=== PATIENT | male | born 1955 | race Caucasian/White ===

== ENCOUNTER 2017-03-23 03:44 | Outpatient (CLI) | payer MEDICARE ==
[~2017-03-23] VITALS: Ht 193 cm; Wt 145.1 kg
--- NOTE | ~2017-03-23 | HEMODYNAMI ---
PATIENT:TANNER ELMORE MEDICAL RECORD: [id number] : 51 [facility] ADMISSION DATE: 03/23/17 Generatedon:03/24/20179:04 Patient name: TANNER ELMORE Patient #: [id number] SSN: : Date of study: 03/24/2017 Page: Of Hemodynamic Procedure Report Patient Data Patient Demographics Procedure consent was obtained First Name: TANNER Gender: Male Last Name: RAMÍREZ : 1955 Patient #: [id number] Age: 61 year(s) Race: Unknown Additional ID: [id number] Contact details [address]: [address] [place] [address] State: [place] City: [place] Zip code: [address] Past Medical History Allergies Allergen Reaction Date Comments Reported Other allergy 03/24/2017 N Admission Admission Data Admission Date: 03/23/2017 Admission Time: 5:15 Admit Source: Other Room #: D[facility] Lab Results Lab Result Date: 03/23/2017 Lab Result Time: 23:05 Biochemistry Name Units Result Min Max BUN mg/dl 12 --(-*--)-- 7 18 Creatinine mg/dl 0.9 --(-*--)-- 0.6 1.3 CBC Name Units Result Min Max Hematocrit % 45.2 --(-*--)-- 42 54 Hemoglobin g/dl 15.1 --(-*--)-- 13.5 17.5 Procedure Procedure Types Cath Procedure Diagnostic Procedure C [facility] w/Coronaries PCI Procedure Coronary Stent Initial Miscellaneous Procedures Moderate Sedation up to 45 minutes Procedure Description Procedure Date Procedure Date: 03/24/2017 Procedure Start Time: 8:18 Procedure End Time: 9:02 Procedure Staff Name Function Jacinto Ward MD Performing Physician Juanpablo Fisher RT Scrub Misael Varela RN Nurse Aleksandar Cuevas RT Monitor Procedure Data Cath Procedure Fluoroscopy Diagnostic fluoroscopy Total fluoroscopy Time: time: 15.4 min 15.4 min Diagnostic fluoroscopy Total fluoroscopy dose: dose: 1951 mGy 195 mGy Contrast Material Contrast Material Type Amount (ml) Isovue 300 152 Entry Location Entry Primary Successful Side Size Upsize Upsize Entry Closure Ashby ccessful Closure Location (Fr) 1 (Fr) 2 (Fr) Remarks Device Remarks Radial Right 6 Fr Mechanical artery Short Compression Femoral Right 6 Fr Exoseal artery Short Estimated blood loss: 10 ml Diagnostic catheters Device Type Used For End Catheter Placement Diagnostic Terumo 5Fr Procedure Freedom 110cm catheter Diagnostic Infinity 5Fr Procedure AR MOD Catheter Procedure Complications No complications Procedure Medications Medication Administration Route Dosage Oxygen NC 2 l/min 0.9% NaCl I.V. 100 ml/hr Heparin Flush Bag added to field 2 bags (1000units/500ml NS) Radial Cocktail added to field 1 syringe (Verapomil 2mg/Nitro 400mcg/Heparin 1500units) Fentanyl I.V. 50 mcg Versed I.V. 1 mg Fentanyl I.V. 50 mcg Versed I.V. 1 mg Versed I.V. 1 mg Radial Cocktail I.A. 1 syringe (Verapomil 2mg/Nitro 400mcg/Heparin 1500units) Versed I.V. 1 mg Angiomax (bolus) I.V. 22 ml Angiomax Drip I.V. drip 50.6 ml/hr (250mg/50ml NS) (Renal) Angiomax Drip I.V. drip 50.6 ml/hr (250mg/50ml NS) (Renal) Hemodynamics Rest HGB: 15.1 (g/dl) Heart Rate: 75 (bpm) Pressure Samples Time Site Value (mmHg) Purpose Heart Use Rate(bpm) 8:21 LV 125/2,18 EDP 73 Gradients Valve Time Site Site Mean SEP/DFP Peak To Heart Use 1 2 (mmHg) (sec/min) Peak Rate (mmHg) (bpm) Aortic 8:21 LV AO 69 Snapshots Pre Cath Intra NCS Post Cath Vital Signs Time Heart Resp SPO2 etCO2 NIBP (mmHg) Rhythm Pain Sedation Rate (ipm) (%) (mmHg) Status Level (bpm) 7:59:51 72 17 96 0 136/80(106) NSR 0 (11) 10(A) , No pain 8:04:46 75 16 97 0 143/82(111) NSR 0 (11) 10(A) , No pain 8:09:41 75 17 96 20.4 135/82(105) NSR 0 (11) 10(A) , No pain 8:14:30 66 17 97 31.7 130/82(109) NSR 0 (11) 10(A) , No pain 8:19:18 70 18 94 35.5 122/77(95) NSR 0 (11) 9(A) , No pain 8:24:09 69 18 90 31.7 129/75(93) NSR 0 (11) 9(A) , No pain 8:29:00 70 19 94 34.7 123/76(94) NSR 0 (11) 9(A) , No pain 8:33:49 72 34 95 33.2 122/77(93) NSR 0 (11) 9(A) , No pain 8:38:40 67 22 94 33.2 138/64(104) NSR 0 (11) 9(A) , No pain 8:43:31 71 20 94 38.5 127/76(94) NSR 0 (11) 9(A) , No pain 8:48:20 72 16 93 36.3 117/77(89) NSR 0 (11) 9(A) , No pain 8:53:06 71 17 93 26.4 125/80(98) NSR 0 (11) 9(A) , No pain 8:57:55 73 18 94 31.7 132/79(105) NSR 0 (11) 9(A) , No pain 9:02:44 71 11 97 30.2 131/76(101) NSR 0 (11) 9(A) , No pain Medications Time Medication Route Dose Verified Delivered Reason Notes Effectiveness by by 8:01:47 Oxygen NC 2 l/min Jacinto Misael Per physician Sylvia Varela RN, MD 8:02:01 0.9% NaCl I.V. 100 Jacinto Misael Per physician ml/hr Sylvia Varela RN, MD 8:02:10 Heparin Flush added 2 bags Jacinto Misael used for Bag to Sylvia Varela RN procedure (1000units/500ml field COLBY NS) 8:02:20 Radial Cocktail added 1 Jacinto Misael used for (Verapomil to syringe Sylvia Varela RN procedure 2mg/Nitro field COLBY 400mcg/Heparin 1500units) 8:13:56 Fentanyl I.V. 50 mcg Jacinto Misael for sedation Sylvia Varela RN, MD 8:14:04 Versed I.V. 1 mg Jacinto Misael for sedation Sylvia Varela RN, MD 8:15:41 Fentanyl I.V. 50 mcg Jacinto Misael for sedation Sylvia Varela RN, MD 8:15:46 Versed I.V. 1 mg Jacinto Misael for sedation Sylvia Varela RN, MD 8:17:30 Versed I.V. 1 mg Jacinto Misael for sedation Sylvia Varela RN, MD 8:19:35 Radial Cocktail I.A. 1 Jacinto Jacinto for (Verapomil syringe Sylvia Ward MD vasodilation 2mg/Nitro 400mcg/Heparin 1500units) 8:27:08 Versed I.V. 1 mg Jacinto Misael for sedation Sylvia Varela RN, MD 8:32:54 Angiomax (bolus) I.V. 22 ml Jacinto Misael for Sylvia Varela RN anticoagulation 8:36:07 Angiomax Drip I.V. 50.6 Jacinto Misael for (250mg/50ml NS) drip ml/hr Sylvia Varela RN anticoagulation (Renal) 8:57:15 Angiomax Drip I.V. 50.6 Jacinto Misael discontinued (250mg/50ml NS) drip ml/hr Sylvia Varela RN per physician (Renal) Procedure Log Time Note 7:36:10 Informed consent obtained and on chart 7:36:22 Admit Source: Other 7:36:24 Diagnostic Cath status Elective 7:36:41 Misael Varela RN sent for patient. Start room use. 7:36:42 Time tracking: Regular hours 7:36:46 Plan of Care:Hemodynamics will remain stable., Cardiac rhythm will remain stable., Comfort level will be maintained., Respiratory function will remain adequate., Patient/ family verbilizes understanding of procedure., Procedure tolerated without complication., Recovers from procedure without complications.. 7:36:58 H&P Date Dictated: 03/23/2017 Within 30 days and on chart.. 7:37:43 Lab Result : Hemoglobin 15.1 g/dl 7:37:43 Lab Result : Creatinine 0.9 mg/dl 7:37:43 Lab Result : BUN 12 mg/dl 7:37:43 Lab Result : Hematocrit 45.2 % 7:49:45 Patient received from Med II to CCL 1 Alert and oriented. Tansferred to table in Supine position. 7:49:46 Warm blankets applied, and layla hugger turned on for patient comfort. 7:49:46 Correct patient and procedure confirmed by team. 7:49:47 ECG and BP/O2 sat monitors applied to patient. 7:49:48 Pre-procedure instructions explained to patient. 7:49:49 Pre-op teaching completed and patient verbalized understanding. 7:58:34 Vital chart was started 8:01:47 Oxygen 2 l/min NC was administered by Misael Varela RN; Per physician; 8:02:01 0.9% NaCl 100 ml/hr I.V. was administered by Misael Varela RN; Per physician; 8:02:10 Heparin Flush Bag (1000units/500ml NS) 2 bags added to field was administered by Misael Varela RN; used for procedure; 8:02:20 Radial Cocktail (Verapomil 2mg/Nitro 400mcg/Heparin 1500units) 1 syringe added to field was administered by Misael Varela RN; used for procedure; 8:10:35 Baseline sample Acquired. 8:10:39 Rhythm: sinus rhythm 8:10:45 Family in patients room. 8:10:46 Patient NPO since Midnight. 8:10:56 Patient allergic to Other allergyPCN 8:10:58 Is the patient allergic to Iodine/contrast media? No. 8:10:59 Is patient on blood thinner?Yes 8:11:02 ACC The patient was administered the following blood thiners within the last 24 hours: ACCBrilinta 8:11:51 Patient diabetic? No. 8:12:10 Previous problem with sedation/anesthesia? No ? 8:12:11 Snore? Yes 8:12:12 Sleep apnea? No 8:12:14 Deviated septum? No 8:12:25 Opens mouth fully? Yes 8:12:27 Sticks out tongue? Yes 8:12:40 Airway obstruction? No ? 8:12:42 Dentures? Yes out 8:12:45 Modified Lino's test Ulnar < 7 seconds 8:12:47 Patient pain scale 0/10 ?. 8:12:54 IV patent on arrival in left wrist with 0.9% NaCl at [facility]. 8:12:58 Lab results completed and on chart. 8:13:02 Right Radial & Right Groin area was prepped with chlora-prep and draped in sterile fashion 8:13:14 Alarms reviewed by R. N. 8:13:15 Sharps counted by scrub and verified by R.N. 8:13:20 Use device set Radial Dx 8:13:21 MBrace Wrist Support opened to sterile field. 8:13:22 Acist Manifold opened to sterile field. 8:13:23 Acist Hand Control opened to sterile field. 8:13:25 Acist Syringe opened to sterile field. 8:13:25 Medline Cath Pack opened to sterile field. 8:13:26 Bag Decanter opened to sterile field. 8:13:26 Terumo 6Fr Slender Glidesheath opened to sterile field. 8:13:27 St Amador 260cm J .035 wire opened to sterile field. 8:13:27 Tegaderm 4 x 4 opened to sterile field. 8:13:31 Physician arrived 8:13:31 --------ALL STOP TIME OUT------ 8:13:32 Final Timeout: patient, procedure, and site verified with staff and physician. All members of the team are in agreement. 8:13:34 Right Radial & Right Groin site verified by team. 8:13:36 Physical assessment completed. ASA score P 2 - A patient with mild systemic disease as per Jacinto Ward MD. 8:13:40 Sedation plan: IV Moderate Sedation Versed, Fentanyl 8:13:56 Fentanyl 50 mcg I.V. was administered by Misael Varela RN; for sedation; 8:14:02 IV Extension Set opened to sterile field. 8:14:04 Versed 1 mg I.V. was administered by Misael Varela RN; for sedation; 8:15:41 Fentanyl 50 mcg I.V. was administered by Misael Varela RN; for sedation; 8:15:46 Versed 1 mg I.V. was administered by Misael Varela RN; for sedation; 8:17:30 Versed 1 mg I.V. was administered by Misael Varela RN; for sedation; 8:18:39 Procedure started. 8:18:40 Full Disclosure recording started 8:18:45 Local anesthetic to right radial artery with Lidocaine 2% by Jacinto Ward MD.INITIAL ACCESS ONLY 8:18:51 A 6 Fr Short sheath was inserted into the Right Radial artery 8:19:07 A Diagnostic Terumo 5Fr Freedom 110cm catheter was advanced over the wire and used for Procedure. 8:19:15 Zero performed for pressure channel P1 8:19:20 Zero performed for pressure channel P1 8:19:35 Radial Cocktail (Verapomil 2mg/Nitro 400mcg/Heparin 1500units) 1 syringe I.A. was administered by Jacinto Ward MD; for vasodilation; 8:21:15 LV gram done using [place] 8::27 Injector settings: Ml/sec: 12., Volume: 8, 8:22:13 EF : 50 % 8:22:19 LCA angiography performed. 8:24:00 Catheter exchanged over wire. 8:24:07 A Diagnostic Infinity 5Fr AR MOD Catheter was advanced over the wire and used for Procedure. 8:26:46 RCA angiography performed. 8:27:08 Versed 1 mg I.V. was administered by Misael Varela RN; for sedation; 8:27:18 Catheter removed. 8:27:28 Medtronic Launcher 6Fr AR 1.0 guide catheter opened to sterile field. 8:29:32 Copilot Bleedback Control Valve opened to sterile field. 8:29:44 [employer] BasixCompak Inflation Kit opened to sterile field. 8:29:51 6 Fr AR 1 guide catheter was inserted over the wire 8:30:12 Mckay BMW Alburgh II J-Tip 190cm wire opened to sterile field. 8:32:54 Angiomax (bolus) 22 ml I.V. was administered by Misael Varela RN; for anticoagulation; 8:34:53 Guide Catheter removed. unable to cannulate vessel. 8:35:03 Medtronic Launcher 6Fr MB 1 guide catheter opened to sterile field. 8:35:15 6 Fr MB1 guide catheter was inserted over the wire 8:36:07 Angiomax Drip (250mg/50ml NS) (Renal) 50.6 ml/hr I.V. drip was administered by Misael Varela RN; for anticoagulation; 8:38:54 Medtronic Launcher 6Fr 3DRC guide catheter opened to sterile field. 8:39:07 6 Fr 3DRC guide catheter was inserted over the wire 8:40:54 Guide Catheter removed. unable to cannulate vessel. 8:41:28 UNABLE TO CANNULATE RCA FROM RADIAL APPROACH. MOVING TO FEMORAL. 8:42:42 Terumo ANGLE 260cm glide wire opened to sterile field. 8:42:43 Terumo 6Fr Mariposa Sheath opened to sterile field. 8:44:32 Cook 4Fr Micropuncture ([id number]) opened to sterile field. 8:44:51 GLIDE WIRE wire advanced to aid in femoral stick. 8:45:17 Local anesthetic to right femoral artery with Lidocaine 2% by Jacinto Ward MD.ADDITIONAL ACCESS 8:45:26 Access obtained with 4Fr micropunture. 8:45:32 A 6 Fr Short sheath was inserted into the Right Femoral artery 8:46:03 glide wire removed. 8:46:35 K[employer]o Runway 6Fr ART 3.5 guide catheter opened to sterile field. 8:46:45 6 Fr art 3.5 guide catheter was inserted over the wire 8:49:09 BMW 190cm wire advanced. 8:50:56 Wire advanced across lesion. 8:53:42 Inflation Number: 1 A Medtronic Integrity Rx 3.0 x 22 stent was prepped and advanced across the Mid RCA. The stent was deployed at 16 FIONA for 0:13 (min:sec). 8:54:21 Stent catheter was removed intact over wire. 8:55:01 Wire removed. 8:55:44 Guide catheter removed. 8:55:55 Cordis 6Fr Exoseal opened to sterile field. 8:55:56 Terumo TR Band Large opened to sterile field. 8:56:48 Sheath removed intact; hemostasis achieved with Exoseal to the Right Femoral artery. 8:56:53 Sheath removed intact; hemostasis achieved with Mechanical Compression to the Right Radial artery. 8:56:56 Procedure ended.(Physican Out) 8:57:15 Angiomax Drip (250mg/50ml NS) (Renal) 50.6 ml/hr I.V. drip was administered by Misael Varela RN; discontinued per physician; 8:57:19 Fluoroscopy time 15.40 minutes. 8:57:23 Flurop Dose total: 1951 8:57:23 Fluoroscopy dose: 1951 mGy 8:57:27 Contrast amount:Isovue 300 152ml. 8:57:28 Sharps counted by scrub and verified by R.N. 8:57:36 TR band inflated with 12cc of air. 8:57:38 Insertion/operative site no bleeding no hematoma. 8:57:46 Post-op/insertion site Right Femoral artery dressed using a 4 x 4 and Tegaderm. 8:59:31 Post right femoral artery:stable, soft, clean and dry 8:59:52 Post Procedure Pulses reassessed and unchanged 8:59:57 Post-procedure physical assessment completed. ASA score P 2 - A patient with mild systemic disease as per Jacinto Ward MD. 9:00:00 Post procedure rhythm: unchanged. 9:00:02 Estimated blood loss: 10 ml 9:00:03 Post procedure instruction explained to patient.Patient verbalizes understanding. 9:00:04 Patient needs reinforcement of post procedure teaching. 9:00:15 Procedure type changed to Cath procedure, Diagnostic procedure, LHC, LHC w/Coronaries, PCI procedure, Coronary Stent Initial, Miscellaneous Procedures, Moderate Sedation up to 45 minutes 9:01:45 Procedure and supply charges have been captured, reviewed, submitted and are correct. 9:01:48 Procedure Complication : No complications 9:01:57 Vital chart was stopped 9:01:58 See physician's report for complete and final results. 9:01:59 Report given to PCU. 9:02:02 Patient transfered to PCU with Stretcher. 9:02:06 Procedure ended. 9:02:06 Full Disclosure recording stopped 9:02:20 End room use (Document Last) Intervention Summary Intervention Notes Time ActionType Lesion and Equipment Action# Pressure Duration Attributes Used 8:53:42 Place stent Mid RCA Medtronic 1 16 00:13 Integrity Rx 3.0 x 22 stent Device Usage Item Name Manufacture Quantity Catalog Number Hospital Part Current Min imal Lot# / Charge Number Stock Stock Serial# Code MBrace Wrist Advanced 1 140-0250-00 078915 83417 547670 5 Support Vascular Dynamics Acist Acist 1 32461 888947 009171 094238 5 [employer] Inc Acist Hand Acist 1 77792 918946 970484 921931 5 'Rock[employer] Your [employer] Inc Acist Syringe Acist 1 21975 169653 748689 441365 20 Medical Systems Inc Medline Cath Cardinal 1 [id number] 581892 89889 105727 5 Pack Health Bag Decanter Microtek 1 2002S 329417 49170 248373 5 Medical Inc. Terumo 6Fr Terumo 1 [id number] 684190 352914 609973 [address] Am[address] St Amador 1 928795 156429 991841 087836 30 J .035 wire Tegaderm 4 x 3M 1 [id number] 380044 997817 725980 5 4 IV Extension Hospira 1 41693-05 770022 21143 540947 5 Set Diagnostic Terumo 1 40-6743 451215 156916 269491 5 Terumo 5Fr Freedom 110cm catheter Diagnostic Cardinal 1 [id number] 362624 019902 770196 15 Infinity 5Fr Health AR MOD Catheter Medtronic Medtronic 1 [id number] 287574 70406 197507 1 Launcher 6Fr AR 1.0 guide catheter Copilot Mckay 1 [id number] 988690 088324 514393 5 Bleedback Vascular Control Valve Merit Merit 1 FX1062 053896 319765 614494 15 BasixCompak Medical Inflation Kit Mckay BMW Mckay 1 [id number] 101536 24863 199460 5 Alburgh II Vascular J-Tip 190cm wire Medtronic Medtronic 1 [id number] 251267 41771 729875 1 Launcher 6Fr MB 1 guide catheter Medtronic Medtronic 1 [id number] 257276 561491 225215 1 Launcher 6Fr 3DRC guide catheter Terumo ANGLE Terumo 1 NI6279 088850 971981 013021 5 260cm glide wire Terumo 6Fr Terumo 1 [id number] 385056 901137 305857 40 Mariposa Sheath Cook 4Fr Cook Medical 1 D01677 688877 447955 151033 5 Micropuncture (D54290) Bancroft Sci Bancroft 1 [id number] 761060 113210 69[address] 6[address] Scientific ART 3.5 guide catheter Medtronic Medtronic 1 [id number] 408308 476545 816625 5 [id number] Integrity Rx 3.0 x 22 stent Cordis 6Fr Cardinal 1 EX600 999793 098332 524045 10 [employer] [place] [address] [id number] 931000 265931 772336 40 Band Large Signature Audit [place] Stage Time Signature Unsigned Intra-Procedure 03/24/2017 Aleksandar Cuevas 9:04:24 AM RT(R) Signatures Monitor : Aleksandar Cuevas RT Signature : Date : Time : [place] [id number] [place] [id number]
[2017-03-23 04:11] LABS: BASOPHILS 0.5 % (0-2); EOSINOPHILS 2.3 % (0-7); HEMATOCRIT 51.7 % (42.0-54.0); HEMOGLOBIN 17.2 g/dL (13.5-17.5); IMMATURE GRANULOCYTES 0.4 % (0-5); LYMPHOCYTES 27.2 % (15-50); MCH 30.4 pg (26.0-34.0); MCHC 33.3 g/dL (31.0-37.0); MCV 91.5 fL (80.0-100.0); MEAN PLATELET VOLUME 10.3 fL (7.4-10.4); MONOCYTES 9.4 % (2-11); NEUTROPHILS 60.2 % (40-80); PLATELET COUNT 197 10x3/uL (130-400); RBC 5.65 10x6/uL (4.20-6.10); RDW 13.1 % (11.5-14.5); WBC 10.1 10x3/uL (4.8-10.8)
[2017-03-23 04:27] LABS: ALBUMIN 3.3 g/dL (3.4-5.0); ALKALINE PHOSPHATASE 87 U/L (46-116); ALT (SGPT) 37 U/L (10-68); BILIRUBIN - TOTAL 0.21 mg/dL (0.2-1.3); CALC OSMOLALITY 278 mosm/kg (275-300); CALCIUM 9.2 mg/dL (8.5-10.1); CARBON DIOXIDE 23.3 mmol/L (21.0-32.0); CHLORIDE - SERUM 105 mmol/L (98-107); GLUCOSE 140 mg/dL (74-106); POTASSIUM - SERUM 4.3 mmol/L (3.5-5.1); SODIUM 139 mmol/L (136-145); UREA NITROGEN 10 mg/dL (7-18); eGFR NON AFRICAN AMERICAN 80 mL/min (90-120)
[2017-03-23 04:41] LABS: CKMB 1.2 U/L (0.0-3.6); CREATINE KINASE 83 UL (21-232)
[2017-03-23 04:43] LABS: TROPONIN-I 0.508 ng/mL (0.000-0.060)
[2017-03-23] MEDS ORDERED: CALAN SR240 MG PO (06:10)
[2017-03-23 06:23] VITALS: BP 100/79; Ht 193 cm; Wt 145.1 kg
--- NOTE | 2017-03-23 07:00 | NUR ---
PT ADMITTED FROM THE ER AT 0615 W/ DX OF CHEST PAIN. PLAN IS FOR CARDIAC CATH TODAY. PT IS NPO FOR PROCEDURE. PT'S SIGNIFICANT OTHER IS AT THE BEDSIDE. MED REC, ADMISSION ASSESS, AND ADMISSION HX ARE COMPLETE. PT WAS SUPPOSED TO BE GETTING BRILLINTA, BUT IT WAS NOT AVAILABLE IN THE ER, THIS WAS REPORTED OFF TO THE DAY TIME RN. PT WITH POSITIVE TROPONIN 0.508, VITAL SIGNS STABLE. WILL CONT TO MONITOR.
[2017-03-23 07:46] VITALS: BP 96/57
[2017-03-23 08:39] LABS: CKMB 5.8 U/L (0.0-3.6); CREATINE KINASE 117 UL (21-232)
[2017-03-23 08:41] LABS: TROPONIN-I 0.647 ng/mL (0.000-0.060)
[2017-03-23 11:23] VITALS: BP 108/59
--- NOTE | 2017-03-23 13:04 | NUR ---
TELEMETRY SR. RESP UL ON 02 2L NC. RESTS IN BED WITHOUT C/O C/P NOTED. WILL CONT. PLAN OF CARE.
[2017-03-23 14:46] LABS: CKMB 24.3 U/L (0.0-3.6)
[2017-03-23 14:52] LABS: CREATINE KINASE 234 UL (21-232)
[2017-03-23 14:53] LABS: TROPONIN-I 4.052 ng/mL (0.000-0.060)
--- NOTE | 2017-03-23 15:06 | NUR ---
ELEVATED TROPONIN CALLED TO DR. TELLES.
[2017-03-23 15:40] VITALS: BP 106/63
--- NOTE | 2017-03-23 20:00 | NUR ---
RESTING IN BED. ALERT/ORIENTED. SR PER TELEMETRY. O2 @ 2L/NC WITH NONLABORED RESPIRATIONS. SALINE LOCK TO LEFT A/C. 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 WILL BE NPO AT MIDNIGHT FOR HEART CATH IN AM PER DR TELLES.
[2017-03-23 20:10] VITALS: BP 110/62
[2017-03-23 20:15] LABS: TROPONIN-I 4.489 ng/mL (0.000-0.060)
--- NOTE | 2017-03-23 20:26 | NUR ---
MONITORING TROPONIN LEVEL, CURRENTLY AT 4.489. NO PAIN OR DISCOMFORT. CPOC.
[2017-03-23 23:14] LABS: BASOPHILS 0.5 % (0-2); HEMATOCRIT 45.2 % (42.0-54.0); HEMOGLOBIN 15.1 g/dL (13.5-17.5); IMMATURE GRANULOCYTES 0.5 % (0-5); LYMPHOCYTES 25.4 % (15-50); MCH 30.6 pg (26.0-34.0); MCHC 33.4 g/dL (31.0-37.0); MCV 91.5 fL (80.0-100.0); MEAN PLATELET VOLUME 9.9 fL (7.4-10.4); MONOCYTES 10.2 % (2-11); NEUTROPHILS 61.4 % (40-80); PLATELET COUNT 186 10x3/uL (130-400); RBC 4.94 10x6/uL (4.20-6.10); RDW 13.1 % (11.5-14.5); WBC 8.6 10x3/uL (4.8-10.8)
[2017-03-23 23:44] VITALS: BP 103/51
[2017-03-23 23:58] LABS: CALC OSMOLALITY 281 mosm/kg (275-300); CALCIUM 8.7 mg/dL (8.5-10.1); CARBON DIOXIDE 27.4 mmol/L (21.0-32.0); CHLORIDE - SERUM 106 mmol/L (98-107); CREATININE - SERUM 0.9 mg/dL (0.6-1.3); GLUCOSE 111 mg/dL (74-106); SODIUM 141 mmol/L (136-145); UREA NITROGEN 12 mg/dL (7-18); eGFR NON AFRICAN AMERICAN > 90 mL/min (90-120)
[2017-03-24 04:24] VITALS: BP 94/49
--- NOTE | 2017-03-24 04:35 | NUR ---
DR TELLES PLACED ORDERS FOR PT'S AM CARDIAC CATHERIZATION IN COMPUTER AT 2200. PT HAS BEEN NPO SINCE MIDNIGHT.
--- NOTE | 2017-03-24 06:28 | NUR ---
PT REVIEWED AND SIGNED CONSENT FORMS FOR TODAYS HEART CATH PER DR TELLES.
--- NOTE | 2017-03-24 07:59 | NUR ---
IV RESTARTED TO LEFT HAND WITH 22 GAUGE CATH. PRE-OPS GIVEN. TO LAND COMMISSIONER BY BED.
--- NOTE | 2017-03-24 09:33 | NUR ---
BACK FROM RESOURCE ENGINEER. VS WNL. RIGHT GROIN STABLE WITHOUT BLEEDING OR HEMATOMA NOTED. TR BAND TO RIGHT WRIST. WILL CONT. PLAN OF CARE.
--- NOTE | 2017-03-24 13:35 | NUR ---
BED REST UP. GROIN STABLE.
--- NOTE | 2017-03-24 13:45 | NUR ---
MAKAYLA ESTRADA APPLIED TO SITE. WANTS TO GO HOME. DR. KOKI HUERTAS.
[2017-03-24] MEDS ORDERED: LIPITOR20 MG PO (13:51)
[2017-03-24] MEDS ORDERED: ASPIRIN81 MG PO (13:52)
[2017-03-24] MEDS ORDERED: LOPRESSOR25 MG PO (13:52)
[2017-03-24] MEDS ORDERED: PLAVIX75 MG PO (13:53)
--- NOTE | 2017-03-24 16:38 | NUR ---
IV AND TELEMETRY DCD. DC PLANS GIVEN. UNDERSTANDING VOICED.
--- NOTE | 2017-03-24 16:53 | NUR ---
ESCORTED TO CAR BY W/C.
--- NOTE | 2017-04-23 08:55 | EC ---
PATIENT:TANNER ELMORE DATE OF SERVICE: 03/23/17 SEX: M MEDICAL RECORD: [id number] DATE OF : [birth year] LOCATION:D.OPS AGE OF PATIENT: 61 ADMISSION DATE: 03/23/17 REFERRING PHYSICIAN: INTERPRETING PHYSICIAN: TAWNY TELLES MD ECHOCARDIOGRAM REPORT ECHO CHARGES 4 ECHO COMPLETE CLINICAL DIAGNOSIS: CP ECHOCARDIOGRAPHIC MEASUREMENTS (adult normal given) AC root (d.<3.7cm) 3.0 cm LV Septum d (<1.2 cm> 1.5 cm Valve Excursion 2.2 cm LV Septum (systole) 2.3 cm Left Atria (s.<4.0cm> 4.1 cm LVPW d(<1.2cm) 1.4 cm RV (d.<2.3cm) 2.5 cm LVPW (sytole) 2.0 cm LV diastole(<5.6CM) 5.6 cm MV E-F(>70mm/sec) cm LV systole 3.8 cm LVOT Diameter 2.0 cm MV exc.(>10mm) cm Est.ejection fraction (50-75%) % Pericardial Effusion N DOPPLER: LVIT cm/sec A 58.0 cm/sec E 66.0 cm/sec LA cm/sec RVSP 18.1 mmHg LVOT 106 cm/sec AOP1/2T m/s Asc. Ao 140 cm/sec RVOT 61.0 cm/sec RA cm/sec PA 146 cm/sec AV Gradient Peak 7.9 mmHg AV Mean 3.7 mmHg AV Area 2.6 cm MV Gradient Peak 2.7 mmHg MV Mean 1.0 mmHg MV Area cm COMMENTS: Drug Abuse Worker: Venkatesh BATESOE Machine Feeder: 4 Dr. Telles TAPE# PACS DATE OF SERVICE: 03/23/2017 PROCEDURE: Transthoracic echocardiogram. FINDINGS: 1. The left ventricle has [id number] left ventricular hypertrophy. The inferior region of the heart is not well visualized. The overall function of the heart appears to be normal at 55%. Inflow characteristics are normal. 2. The left atrium is mildly dilated. 3. The mitral valve has normal structure with mild mitral regurgitation. ECHOCARDIOGRAM REPORT [id number] TANNER ELMORE 4. The tricuspid valve has mild tricuspid regurgitation with normal right ventricular systolic pressures. 5. The aortic valve is structurally and functionally normal. 6. The pericardium has no pericardial effusion. 7. Interatrial septum is normal. 8. The IVC is not well visualized. 9. The pulmonic valve has trace pulmonic insufficiency. 10. The right ventricle and right atrium are both structurally and functionally normal. CONCLUSIONS: The patient has evidence of mild hypertensive heart disease with normal LV systolic function. TRANSINT:[id number] Voice Confirmation ID: [id number] DOCUMENT ID: [id number] 04/03/2017 Edited to correct date of service, dm. TAWNY TELLES MD at 0855 CC: [id number] DICTATION DATE: 03/26/17 0709 CHAIR AND COUCH MAKER: 03/26/17 0742 DEP CLI 03/24/17 [place] [id number] [place] [address]
== END 2017-03-24 16:54 | disposition home or self-care (01) ==
LOC: OBSVTIME → D.ER 03:44 → D.OPS 03:44 → D.M2 05:15 → D.ER 05:15 → OBSVTIME 05:15 → D.M2 05:15 → EDSTATUS 14:41 → D.OPS 03-24 16:54 → D.M2 03-24 16:54
PROVIDERS: Emergency Medicine; Internal Medicine Cardiovascular Disease
DX: I21.4 Non-ST elevation (NSTEMI) myocardial infarction (principal); I25.5 Ischemic cardiomyopathy; Z72.0 Tobacco use; E78.2 Mixed hyperlipidemia; I10 Essential (primary) hypertension

== ENCOUNTER → 2017-04-12 08:49 | Outpatient (CLI) | payer MEDICARE ==
[~2017-04-12 08:49] MED LIST: ASPIRIN81 MG PO; CALAN SR240 MG PO; LIPITOR20 MG PO; LOPRESSOR25 MG PO; PLAVIX75 MG PO
--- NOTE | 2017-04-23 12:15 | EC ---
PATIENT:TANNER ELMORE DATE OF SERVICE: 04/12/17 SEX: M MEDICAL RECORD: [id number] DATE OF : [birth year] [facility]GE [facility] PAT[facility]: 61 ADMISSION DATE: 04/12/17 REFERRING PHYSICIAN: INTERPRETING PHYSICIAN: TIERRA ABREU MD ECHOCARDIOGRAM REPORT ECHO CHARGES 4 ECHO COMPLETE CLINICAL DIAGNOSIS: NON ST ELEVATION/LA/CAD/HTN ECHOCARDIOGRAPHIC MEASUREMENTS (adult normal given) AC root (d.<3.7cm) 3.4 cm LV Septum d (<1.2 cm> 1.4 cm Valve Excursion 2.2 cm LV Septum (systole) 2.0 cm Left Atria (s.<4.0cm> 4.4 cm LVPW d(<1.2cm) 1.2 cm RV (d.<2.3cm) 2.8 cm LVPW (sytole) 2.0 cm LV diastole(<5.6CM) 4.9 cm MV E-F(>70mm/sec) cm LV systole 3.0 cm LVOT Diameter 2.0 cm MV exc.(>10mm) cm Est.ejection fraction (50-75%) % Pericardial Effusion N DOPPLER: LVIT cm/sec A 52.0 cm/sec E 76.0 cm/sec LA cm/sec RVSP 31.0 mmHg LVOT 115 cm/sec AOP1/2T m/s Asc. Ao 142 cm/sec RVOT 89.0 cm/sec RA cm/sec PA 124 cm/sec AV Gradient Peak 8.1 mmHg AV Mean 4.2 mmHg AV Area 1.9 cm MV Gradient Peak 2.9 mmHg MV Mean 1.4 mmHg MV Area cm COMMENTS: Billing Checker: Venkatesh BATESOE Rubber Tester: Kirsty Ward TAPE# PACS DATE OF SERVICE: 04/12/2017 FINDINGS: 1. Left ventricular chamber size is within normal limits. Left ventricular systolic function is normal. Overall ejection fraction estimated at 55%. 2. Left atrium is enlarged at 4.4 cm. Right atrium and right ventricular chamber sizes are upper limits of normal. 3. Valvular structures have normal structure and motion. 4. Doppler interrogation reveals no significant valvular insufficiency or stenosis. Pulmonary systolic pressure is normal at 31 mmHg. ECHOCARDIOGRAM REPORT [id number] TANNER ELMORE 5. No evidence of pericardial effusion or left ventricular thrombus. TRANSINT:[id number] Voice Confirmation ID: [id number] DOCUMENT ID: [id number] TIERRA ABREU MD at 1215 CC: [id number] DICTATION DATE: 04/17/17 1143 DESIGN LEAD: 04/17/17 1248 DEP CLI 04/12/[address] [address]
== END | disposition home or self-care (01) ==
LOC: D.ECHO 08:49
DX: I21.4 Non-ST elevation (NSTEMI) myocardial infarction (principal); I25.10 Atherosclerotic heart disease of native coronary artery without angina pectoris; E78.5 Hyperlipidemia, unspecified; I10 Essential (primary) hypertension

== ENCOUNTER → 2017-04-23 16:46 | Outpatient (CLI) | payer MEDICARE ==
[2017-04-23 19:14] LABS: CHOL - HDL RATIO 2.8 ratio (2.3-4.9); LDL-HDL RATIO 0.9 ratio (1.5-3.5)
== END | disposition home or self-care (01) ==
LOC: D.LABREF 16:46
PROVIDERS: Internal Medicine Cardiovascular Disease
DX: E78.5 Hyperlipidemia, unspecified (principal)

== ENCOUNTER → 2017-08-22 16:06 | Outpatient (CLI) | payer MEDICARE ==
[2017-08-22 19:25] LABS: CHOL - HDL RATIO 2.8 ratio (2.3-4.9); LDL-HDL RATIO 1.2 ratio (1.5-3.5)
== END | disposition home or self-care (01) ==
LOC: D.LABREF 16:06
PROVIDERS: Internal Medicine Cardiovascular Disease
DX: E78.5 Hyperlipidemia, unspecified (principal)

== ENCOUNTER → 2018-02-18 12:16 | Outpatient (CLI) | payer MEDICARE ==
--- NOTE | ~2018-02-18 | EC ---
PATIENT:TANNER ELMORE DATE OF SERVICE: 02/18/18 SEX: M MEDICAL RECORD: [id number] DATE OF : 51 LOCATION:[facility] AGE OF PATIENT: 62 ADMISSION DATE: 02/18/18 REFERRING PHYSICIAN: INTERPRETING PHYSICIAN: TAWNY TELLES MD ECHOCARDIOGRAM REPORT ECHO CHARGES 4 ECHO COMPLETE Date: 02/18/18 CLINICAL DIAGNOSIS: CAD ECHOCARDIOGRAPHIC MEASUREMENTS (adult normal given) AC root (d.<3.7cm) 2.5 cm LV Septum d (<1.2 cm> 1.1 cm Valve Excursion 1.1 cm LV Septum (systole) 1.4 cm Left Atria (s.<4.0cm> 4.1 cm LVPW d(<1.2cm) 1.3 cm RV (d.<2.3cm) 3.0 cm LVPW (sytole) 1.3 cm LV diastole(<5.6CM) 5.4 cm MV E-F(>70mm/sec) cm LV systole 4.0 cm LVOT Diameter 1.9 cm MV exc.(>10mm) cm Est.ejection fraction (50-75%) % DOPPLER: LVIT cm/sec A 71 cm/sec E 62 cm/sec LA cm/sec RVSP 20.1 mmHg LVOT 89 cm/sec AOP1/2T m/s Asc. Ao 134 cm/sec RVOT 97 cm/sec RA cm/sec PA 106 cm/sec AV Gradient Peak 7.1 mmHg AV Mean 3.5 mmHg AV Area 1.9 cm MV Gradient Peak 3.4 mmHg MV Mean 2.1 mmHg MV Area cm COMMENTS: Telecom Network Manager: Deena [facility] Echo Vascular Tech: Kirsty Telles TAPE# PACS Pericardial Effusion N DATE OF SERVICE: PROCEDURE: Transthoracic echocardiogram. FINDINGS: 1. Left ventricle is normal size and shape. Ejection fraction is 55% to 60%. Inflow characteristics are consistent with diastolic dysfunction, appears to have mild concentric left ventricular hypertrophy. 2. The left atrium is normal to mildly dilated. 3. The aortic valve is normal trileaflet. ECHOCARDIOGRAM REPORT [id number] TANNER ELMORE 4. The mitral valve is grossly normal with no significant mitral regurgitation. 5. Tricuspid valve has trace tricuspid regurgitation. 6. The right ventricle is mildly dilated as well as the right atrium. CONCLUSIONS: The patient has evidence of mild hypertensive heart disease, otherwise normal echocardiogram. TRANSINT:[id number] Voice Confirmation ID: [id number] DOCUMENT ID: [id number] TAWNY TELLES MD at 2344 CC: [id number] DICTATION DATE: 02/19/18910 [employer] OPERATOR: 02/19/18 1048 DEP CLI 02/18/18 [place] [id number] [place] [id number]
== END | disposition home or self-care (01) ==
LOC: D.ECHO 10-16 09:00
DX: I25.10 Atherosclerotic heart disease of native coronary artery without angina pectoris (principal)

== ENCOUNTER → 2019-12-30 13:12 | Outpatient (CLI) | payer MEDICARE | END | disposition home or self-care (01) | LOC: D.HCCECHO 13:12 | PROVIDERS: ATTEND Internal Medicine Cardiovascular Disease | DX: I25.10 Atherosclerotic heart disease of native coronary artery without angina pectoris (principal) ==